=== PATIENT | male | born 1945 | race Caucasian/White ===

== ENCOUNTER 2016-05-23 07:48 | Day surgery (SDC) | payer OTHER ==
[2016-05-19 09:39] LABS: HEMATOCRIT 39.2 % (40.0-51.0); HEMOGLOBIN 13.2 g/dL (13.6-17.8)
[2016-05-19 10:10] LABS: BUN (BLOOD UREA NITROGEN) 9 MG/DL (6-23); CALCIUM, SERUM 8.3 MG/DL (8.5-10.4); CHLORIDE, SERUM 107 MMOL/L (96-112); CO2 (CARBON DIOXIDE) 28 MMOL/L (24-34); CREATININE 0.86 MG/DL (0.70-1.30); GFR AFRICAN AMERICAN 100 ML/MIN (>=60); GFR NON AFRICAN AMERICAN 87 ML/MIN (>=60); GLUCOSE, SERUM 73 MG/DL (60-99); POTASSIUM, SERUM 3.8 MMOL/L (3.5-5.3); SODIUM, SERUM 142 MMOL/L (135-148)
--- NOTE | ~2016-05-23 | OP ---
Record Of Operation [facility] [address] [place]. [address] NAME: FUNMI SHIELDS : 41 STATUS : [facility]#: [id number] AGE: 70 ADM/REG DATE : 05/23/16 MR#: [id number] REPORT SERV DATE: 05/23/16 DICTATED BY: GHANSHYAM NUÑEZ DATE: 05/23/16 REPORT STATUS : Draft TRANSCRIBED BY: MODL DATE: 05/23/16 DATE OF PROCEDURE: 05/23/2016 PREOPERATIVE DIAGNOSIS: Right inguinal scrotal hernia. POSTOPERATIVE DIAGNOSIS: Right inguinal scrotal hernia. PROCEDURE: Reduction and mesh patch repair of right inguinal/scrotal hernia. SURGEON: Ghanshyam Nuñez M.D. DESCRIPTION OF OPERATIVE PROCEDURE: The patient was brought to the operating suite and placed in a supine position. He underwent a satisfactory general endotracheal anesthesia without incident. The skin of the abdomen was scrubbed, prepped, and draped in the usual sterile fashion. 0.5% Marcaine with epinephrine utilized as a groin crease incision on the right as well as a right ilioinguinal nerve block at the anterior superior iliac spine. A transverse groin incision was performed dissecting through the skin, subcutaneous tissue, and Luis's fascia to the external oblique aponeurosis. It was opened in direction of its fibers and the cord structures were dissected free from the inguinal canal floor and encircled with a 0.5-inch Raymond drain. The patient had a large, thick, indirect sac. There appeared to be node direct hernia witnessed. The indirect sac was dissected easily off the cord structures at the level of the internal ring. It was opened at this level and underwent high ligation with a running locking 3-0 Vicryl, it was amputated and allowed to retract. Using a piece of precut polypropylene mesh, the hernia was repaired by suturing the mesh to the inguinal canal floor, starting medially at the pubic tubercle and continued inferolaterally along the shelving portion of the ilioinguinal ligament and superolaterally along the aponeurosis of transverse abdominis musculature. At the level of the internal ring, the two tails of the mesh were continuously sutured circumferential lateral to the internal ring and then to each other. The mesh was trimmed. 0.5% Marcaine was instilled into the inguinal canal floor and then the external oblique aponeurosis was closed over the cord structures and the mesh using running locking 3-0 Vicryl. Further Marcaine instilled into the inguinal canal and the Luis's fascia and subcutaneous tissue closed with running 3-0 Vicryl and running subcuticular stitch 4-0 Vicryl for the skin. Dermabond skin adhesive placed. The patient tolerated the procedure well and was returned to PACU in stable condition. At termination of the procedure, sponge, needle, lap, and instrument counts were correct x3. Estimated blood loss, less than 5 to 10 mL. /MODL Record Of Operation [facility] [address] [facility] [place]. [address] NAME: FUNMI SHIELDS : 41 STATUS : [facility]#: [id number] AGE: 70 ADM/REG DATE : 05/23/16 MR#: [id number] REPORT SERV DATE: 05/23/16 DICTATED BY: GHANSHYAM NUÑEZ DATE: 05/23/16 REPORT STATUS : Draft TRANSCRIBED BY: MAK DATE: 05/23/16 Ghanshyam Nuñez M.D. / [id number] CC: Roberto Jimenez M.D.
[~2016-05-23 07:48] MED LIST: ACETYLCYST; ASA5GR PO; ASAB PO; AUG500 PO; BIAXIN5 PO; BISR PR; CETIRIZINE HCL5 MG PO; DSS PO; EQUATE ALLERGY PO; FLOMAX4 PO; HYDREA PO; HYDROCHLOROT12.5 MG PO; HYDROCHLOROT25 MG PO; HYGROTON 25 MG25 MG PO; IMDUR30 PO; IMDUR60 PO; KAOPECTAT2 OR; LACT30UDL PO; LIPITOR20 PO; LOP50 PO; LORT7 PO; MAALOX PO; MECOBAL; MOMUD PO; NIASPAN500 PO; NITROQUICK0.4 MG SL; NORCO1 TA2 PO; NORCO1 TAB PO; NORV5 PO; PCET PO; PLAVIX PO; PR25R PR; PRAVACHOL40 MG PO; PRILO PO; PROTONIX PO; ROBITUSSN DM OR; SYMM100 PO; T PO; VITAMIN B-122500 MCG SL; ZOCOR10 PO; [UNRECOGNIZED DRUG - OTHER]; [UNRECOGNIZED DRUG - REMARK]
== END 2016-05-23 16:00 | disposition home or self-care (01) ==
LOC: SDC 07:48
PROVIDERS: Specialist
PROC: 0YU50JZ Supplement Right Inguinal Region with Synthetic Substitute, Open Approach (ICD-10-PCS; principal; 2016-05-23 09:00)
DX: K40.90 Unilateral inguinal hernia, without obstruction or gangrene, not specified as recurrent (principal); I25.2 Old myocardial infarction; I10 Essential (primary) hypertension; I69.354 Hemiplegia and hemiparesis following cerebral infarction affecting left non-dominant side
CPT/HCPCS: 80048; 85014; 85018; 93005; C1781; J0690; J1885; J2250; J2405; J2710; J3010